=== PATIENT | female | born 1960 | race Two or more races ===

== ENCOUNTER → 2016-10-16 | Outpatient (CLI) | payer BC ==
[~2016-10-16] MED LIST: BACL10TA PO; NAP500T PO; NOR5T PO; OMEP20CA5 PO
== END | disposition home or self-care (01) ==
LOC: LAB 10:33
DX: Z79.899 Other long term (current) drug therapy (principal); D64.9 Anemia, unspecified; M45.0 Ankylosing spondylitis of multiple sites in spine; I10 Essential (primary) hypertension; M32.10 Systemic lupus erythematosus, organ or system involvement unspecified; M25.50 Pain in unspecified joint
CPT/HCPCS: 36415; 84443; 86141

== ENCOUNTER → 2016-11-13 | Outpatient (CLI) | payer BC ==
[2016-11-13 09:20] LABS: Basophils # (auto) 0.1 uL; Basophils % (auto) 0.4 % (0.0-2.0); Eosinophils # (auto) 0.4 uL; Eosinophils % (auto) 2.5 % (0.0-7.0); Hematocrit 42.1 % (36.0-46.0); Hemoglobin 14.2 g/dL (12.2-16.2); Lymphocytes # (auto) 3.3 uL; Lymphocytes % (auto) 22.4 % (10.0-50.0); Mean Corpuscular Hemoglobin 31.3 pg (28.0-32.0); Mean Corpuscular Hgb Conc. 33.9 g/dL (32.0-36.0); Mean Corpuscular Volume 92.4 fL (80.0-100.0); Mean Platelet Volume 8.7 fL (7.4-10.4); Monocytes # (auto) 0.9 uL; Monocytes % (auto) 6.3 % (0.0-12.0); Neutrophils # (auto) 10.1 uL; Neutrophils % (auto) 68.4 % (37.0-80.0); Platelet Count (auto) 272 10^3/uL (140-450); Red Cell Distribution Width 12.8 % (11.6-16.0); White Blood Cell 14.7 10^3/uL (4.4-10.8)
[2016-11-13 09:30] LABS: Urine Bilirubin Negative (Negative); Urine Blood Negative /uL (Negative); Urine Color Yellow (Yellow); Urine Glucose Normal (Normal); Urine Ketone Negative (Negative); Urine Nitrite Negative (Negative); Urine RBC 1 /hpf (0 - 4); Urine Squamous Epithelial Cell MOD /hpf (<5); Urine Urobilinogen Normal (Negative); Urine pH 5.5 (5.0-8.0)
[2016-11-13 09:44] LABS: Albumin 3.9 g/dL (3.4-5.0); BUN/Creatinine Ratio 36.7; Bilirubin, Total 0.5 mg/dL (0.2-1.0); Calcium 9.4 mg/dL (8.5-10.1); Potassium 3.7 mmol/L (3.5-5.1); Total Protein 7.6 g/dL (6.4-8.2)
== END | disposition home or self-care (01) ==
LOC: LAB 08:47
DX: E78.2 Mixed hyperlipidemia (principal); M25.559 Pain in unspecified hip
CPT/HCPCS: 36415; 80053; 80061; 81001; 82306; 85025; 85652

== ENCOUNTER 2017-02-05 06:25 | Day surgery (SDC) | payer BC ==
[2017-02-03 13:08] LABS: Urine Bilirubin Negative (Negative); Urine Blood Negative /uL (Negative); Urine Color Yellow (Yellow); Urine Glucose Normal (Normal); Urine Ketone Negative (Negative); Urine Nitrite Negative (Negative); Urine RBC <1 /hpf (0 - 4); Urine Squamous Epithelial Cell FEW /hpf (<5); Urine Urobilinogen Normal (Negative); Urine pH 5.5 (5.0-8.0)
[2017-02-03 13:13] LABS: Basophils # (auto) 0.1 uL; Basophils % (auto) 0.8 % (0.0-2.0); Eosinophils # (auto) 0.3 uL; Eosinophils % (auto) 2.6 % (0.0-7.0); Hemoglobin 13.9 g/dL (12.2-16.2); Lymphocytes # (auto) 2.4 uL; Lymphocytes % (auto) 23.7 % (10.0-50.0); Mean Corpuscular Hemoglobin 31.8 pg (28.0-32.0); Mean Corpuscular Hgb Conc. 33.8 g/dL (32.0-36.0); Mean Corpuscular Volume 93.9 fL (80.0-100.0); Mean Platelet Volume 10.4 fL (7.4-10.4); Monocytes # (auto) 0.8 uL; Monocytes % (auto) 8.3 % (0.0-12.0); Neutrophils # (auto) 6.5 uL; Neutrophils % (auto) 64.6 % (37.0-80.0); Platelet Count (auto) 267 10^3/uL (140-450); Red Cell Distribution Width 13.5 % (11.6-16.0); White Blood Cell 10.1 10^3/uL (4.4-10.8)
[2017-02-03 13:28] LABS: Albumin 3.8 g/dL (3.4-5.0); BUN/Creatinine Ratio 28.3; Calcium 9.5 mg/dL (8.5-10.1); Potassium 3.3 mmol/L (3.5-5.1)
[2017-02-03 13:30] LABS: Bilirubin, Total 0.5 mg/dL (0.2-1.0); Total Protein 7.4 g/dL (6.4-8.2)
[2017-02-03 13:36] LABS: INR 0.93 (0.9-1.15); Prothrombin Time 10.1 sec (9.37-12.3)
[~2017-02-05] VITALS: Ht 154.9 cm; Wt 57.6 kg
[~2017-02-05 06:25] MED LIST changes: -BACL10TA PO; +ERGO2000 PO; +HYDR-4663 PO; -NOR5T PO; -OMEP20CA5 PO; +OMEP20CA74 PO
[2017-02-05] MEDS ORDERED: LEVOFLOXACIN 500MG 100 ML IV ONE (07:21)
[2017-02-05] MEDS ORDERED: NEOSTIGMINE 1 MG/ML INJ (10mg/10ML VIAL) IV ONE (08:40)
[2017-02-05] MEDS ORDERED: GLYCOPYRROLATE 0.2 MG/ML 1ML VIAL IV ONE (08:40)
[2017-02-05] MEDS ORDERED: MIDAZOLAM HCL 1MG/1ML-2 ML VIAL ONE (08:42)
[2017-02-05] MEDS ORDERED: fentaNYL CITRATE 100 MCG/2 ML VL ONE (08:42)
[2017-02-05] MEDS ORDERED: PROPOFOL 10 MG/ML 20 ML IV ONE (08:43)
[2017-02-05] MEDS ORDERED: ROCURONIUM 10MG/ML 10ML VIAL IV ONE ×2 (08:44→09:08)
[2017-02-05] MEDS: HYDROmorphone HCL 2 MG/ML VL IV PRN ×3 (09:43→10:03)
[2017-02-05] MEDS ORDERED: ONDANSETRON HCL 4 MG/2 ML VIAL IV ONE (09:45)
[2017-02-05] MEDS ORDERED: ePHEDrine SULFATE 50 MG/ML AMP IV PRN (09:45)
[2017-02-05] MEDS ORDERED: hydrALAZINE HCL 20 MG/ML VL IV PRN (09:45)
[2017-02-05] MEDS ORDERED: KETOROLAC TROMETH 30 MG/ML 1ML VIAL ONE (09:52)
[2017-02-05 11:25] VITALS: BP 131/88
== END 2017-02-05 11:35 | disposition home or self-care (01) ==
LOC: SUR 06:25
PROVIDERS: ATTEND Surgery
DX: K80.10 Calculus of gallbladder with chronic cholecystitis without obstruction (principal); B19.10 Unspecified viral hepatitis B without hepatic coma
CPT/HCPCS: 36415; 47562; 80053; 81001; 85025; 85610; 85730; 88304; C1769; J1170; J1885; J1956; J2250; J2405; J2704; J3010; J7030

== ENCOUNTER → 2018-01-29 | Outpatient (CLI) | payer BC ==
[~2018-01-29] MED LIST changes: -HYDR-4663 PO; +HYDR-4683 PO
[2018-01-29 08:56] LABS: Basophils # (auto) 0.1 uL; Basophils % (auto) 0.9 % (0.0-2.0); Eosinophils # (auto) 0.1 uL; Eosinophils % (auto) 1.5 % (0.0-7.0); Hemoglobin 13.3 g/dL (12.2-16.2); Lymphocytes # (auto) 1.6 uL; Lymphocytes % (auto) 16.9 % (10.0-50.0); Mean Corpuscular Hemoglobin 31.9 pg (28.0-32.0); Mean Corpuscular Hgb Conc. 34.2 g/dL (32.0-36.0); Mean Corpuscular Volume 93.2 fL (80.0-100.0); Monocytes # (auto) 0.9 uL; Monocytes % (auto) 9.4 % (0.0-12.0); Neutrophils # (auto) 6.7 uL; Neutrophils % (auto) 71.3 % (37.0-80.0); Platelet Count (auto) 231 10^3/uL (140-450); Red Blood Cells 4.19 10^6/uL (4.0-5.20); Red Cell Distribution Width 13.4 % (11.8-14.3); White Blood Cell 9.4 10^3/uL (4.4-10.8)
[2018-01-29 08:59] LABS: Urine Bacteria FEW /hpf (None Seen); Urine Blood Negative /uL (Negative); Urine Mucus FEW (None Seen); Urine WBC 3 /hpf (0 - 5)
[2018-01-29 09:17] LABS: BUN/Creatinine Ratio 36.4; Calcium 9.2 mg/dL (8.5-10.1)
[2018-01-29 09:50] LABS: Free T3 2.59 pg/mL (2.3-4.2); Free T4 (Free Thyroxine) 1.33 ng/dL (0.89-1.76)
== END | disposition home or self-care (01) ==
LOC: LAB 08:19
PROVIDERS: ATTEND Family Medicine
DX: I10 Essential (primary) hypertension (principal); E78.5 Hyperlipidemia, unspecified; Z79.899 Other long term (current) drug therapy
CPT/HCPCS: 36415; 80048; 80061; 81001; 84439; 84443; 84481; 85025

== ENCOUNTER → 2018-04-29 | Outpatient (CLI) | payer BC ==
[~2018-04-29] MED LIST changes: +BUPIVACAINE 0.5% P/F INJ 10 ML VIAL ONE; +IOHEXOL 300 MG/ML 100ML BOTTLE IJ ONE; +LIDOCAINE 2% (LOCAL ANESTH.) PF 5ml SDV ONE; +methylPREDNISolone ACETATE 80 MG/ML VL ONE; +methylPREDNISolone SOD SUCC 40 MG/ML VL ONE
== END | disposition home or self-care (01) ==
LOC: XY 08:39
PROVIDERS: ATTEND Orthopaedic Surgery Adult Reconstructive Orthopaedic Surgery
DX: M25.552 Pain in left hip (principal); Z88.0 Allergy status to penicillin; Z80.8 Family history of malignant neoplasm of other organs or systems; Z83.3 Family history of diabetes mellitus; Z82.49 Family history of ischemic heart disease and other diseases of the circulatory system
CPT/HCPCS: 20610; 77002; J1040; J3490; Q9967; J2001

== ENCOUNTER → 2018-06-24 | Outpatient (CLI) | payer BC ==
[~2018-06-24] VITALS: Ht 154.9 cm; Wt 74.8 kg
[~2018-06-24] MED LIST changes: +BUPIVACAINE 0.25% INJ 50ML VIAL ONE; -BUPIVACAINE 0.5% P/F INJ 10 ML VIAL ONE; +methylPREDNISolone ACETATE 80 MG/ML VL IM STA; -methylPREDNISolone ACETATE 80 MG/ML VL ONE; -methylPREDNISolone SOD SUCC 40 MG/ML VL ONE
== END | disposition home or self-care (01) ==
LOC: XY 12:41
PROVIDERS: ATTEND Orthopaedic Surgery Adult Reconstructive Orthopaedic Surgery
DX: M25.552 Pain in left hip (principal); Z88.0 Allergy status to penicillin; Z83.3 Family history of diabetes mellitus; Z80.9 Family history of malignant neoplasm, unspecified; Z82.49 Family history of ischemic heart disease and other diseases of the circulatory system
CPT/HCPCS: 20610; 77002; J1040; J2001; J3490; Q9967

== ENCOUNTER → 2018-07-27 | Outpatient (CLI) | payer BC ==
[~2018-07-27] MED LIST changes: -BUPIVACAINE 0.25% INJ 50ML VIAL ONE; -IOHEXOL 300 MG/ML 100ML BOTTLE IJ ONE; -LIDOCAINE 2% (LOCAL ANESTH.) PF 5ml SDV ONE; -methylPREDNISolone ACETATE 80 MG/ML VL IM STA
[2018-07-27 10:07] LABS: Basophils # (auto) 0 uL; Basophils % (auto) 0.2 % (0.0-2.0); Eosinophils # (auto) 0.1 uL; Eosinophils % (auto) 0.5 % (0.0-7.0); Hematocrit 40.9 % (36.0-46.0); Hemoglobin 14.1 g/dL (12.2-16.2); Lymphocytes # (auto) 1.9 uL; Lymphocytes % (auto) 15.4 % (10.0-50.0); Mean Corpuscular Hemoglobin 31.9 pg (28.0-32.0); Mean Corpuscular Hgb Conc. 34.4 g/dL (32.0-36.0); Mean Corpuscular Volume 92.7 fL (80.0-100.0); Monocytes # (auto) 0.7 uL; Monocytes % (auto) 5.8 % (0.0-12.0); Neutrophils # (auto) 9.6 uL; Neutrophils % (auto) 78.1 % (37.0-80.0); Platelet Count (auto) 293 10^3/uL (140-450); Red Blood Cells 4.42 10^6/uL (4.0-5.20); Red Cell Distribution Width 13.4 % (11.8-14.3); White Blood Cell 12.3 10^3/uL (4.4-10.8)
[2018-07-27 10:22] LABS: Urine Bacteria NONE SEEN /hpf (None Seen); Urine Blood Negative /uL (Negative); Urine Specific Gravity 1.013 (1.001-1.035); Urine WBC <1 /hpf (0 - 5)
[2018-07-27 10:41] LABS: Potassium 4.4 mmol/L (3.5-5.1)
[2018-07-27 10:54] LABS: Albumin 3.9 g/dL (3.4-5.0); BUN/Creatinine Ratio 33.9; Bilirubin, Total 0.7 mg/dL (0.2-1.0); Calcium 9.5 mg/dL (8.5-10.1); Total Protein 7.8 g/dL (6.4-8.2)
== END | disposition home or self-care (01) ==
LOC: LAB 08:24
PROVIDERS: ATTEND Nurse Practitioner
DX: E78.5 Hyperlipidemia, unspecified (principal)
CPT/HCPCS: 36415; 80053; 80061; 81001; 83036; 84443; 85025

== ENCOUNTER → 2018-07-31 | Outpatient (CLI) | payer BC | END | disposition home or self-care (01) | LOC: LAB 08:21 | PROVIDERS: ATTEND Nurse Practitioner | DX: E78.5 Hyperlipidemia, unspecified (principal) | CPT/HCPCS: 82270 ==

== ENCOUNTER → 2018-08-13 | Outpatient (CLI) | payer BC ==
[2018-08-13 11:16] LABS: Urine Blood Negative /uL (Negative); Urine Specific Gravity 1.011 (1.001-1.035)
[2018-08-13 11:23] LABS: Basophils # (auto) 0.1 uL; Basophils % (auto) 0.7 % (0.0-2.0); Eosinophils # (auto) 0.2 uL; Eosinophils % (auto) 2.5 % (0.0-7.0); Hematocrit 41.2 % (36.0-46.0); Hemoglobin 13.9 g/dL (12.2-16.2); Lymphocytes # (auto) 2.3 uL; Lymphocytes % (auto) 22.6 % (10.0-50.0); Mean Corpuscular Hemoglobin 31.4 pg (28.0-32.0); Mean Corpuscular Hgb Conc. 33.8 g/dL (32.0-36.0); Mean Corpuscular Volume 92.9 fL (80.0-100.0); Monocytes # (auto) 0.8 uL; Monocytes % (auto) 7.8 % (0.0-12.0); Neutrophils # (auto) 6.7 uL; Neutrophils % (auto) 66.4 % (37.0-80.0); Platelet Count (auto) 216 10^3/uL (140-450); Red Blood Cells 4.43 10^6/uL (4.0-5.20); Red Cell Distribution Width 13.3 % (11.8-14.3); White Blood Cell 10.1 10^3/uL (4.4-10.8)
[2018-08-13 13:43] LABS: Potassium 3.9 mmol/L (3.5-5.1)
[2018-08-13 13:47] LABS: Creatinine, Urine 67 mg/dL (30.0-125.0); Protein, Urine 5.6 mg/dL (0.0-11.9)
[2018-08-13 13:48] LABS: BUN/Creatinine Ratio 31.7; Bilirubin, Total 0.5 mg/dL (0.2-1.0); CRP High Sensitivity 0.19 mg/dL (< 0.3); Calcium 9.2 mg/dL (8.5-10.1); Total Protein 7.4 g/dL (6.4-8.2)
[2018-08-15 16:06] LABS: Aldolase 5.9 U/L (3.3-10.3)
== END | disposition home or self-care (01) ==
LOC: LAB 09:57
PROVIDERS: ATTEND Internal Medicine
DX: D64.9 Anemia, unspecified (principal); M06.9 Rheumatoid arthritis, unspecified; M33.20 Polymyositis, organ involvement unspecified; E03.9 Hypothyroidism, unspecified; E78.5 Hyperlipidemia, unspecified; M32.9 Systemic lupus erythematosus, unspecified; M32.10 Systemic lupus erythematosus, organ or system involvement unspecified; Z79.899 Other long term (current) drug therapy
CPT/HCPCS: 36415; 80053; 81003; 82306; 82550; 82570; 84156; 84443; 85025; 85652; 86141; 86160

== ENCOUNTER → 2018-10-01 | Outpatient (CLI) | payer BC | END | disposition home or self-care (01) | LOC: LAB 13:31 | PROVIDERS: ATTEND Nurse Practitioner | DX: E78.5 Hyperlipidemia, unspecified (principal); E03.9 Hypothyroidism, unspecified | CPT/HCPCS: 36415; 84403; 84478; 84481 ==

== ENCOUNTER → 2018-12-09 | Outpatient (CLI) | payer BC ==
[2018-12-09 10:33] LABS: Urine WBC None Seen /hpf (0 - 5)
[2018-12-09 10:56] LABS: Basophils # (auto) 0.1 uL; Eosinophils # (auto) 0.3 uL; Hematocrit 42.4 % (36.0-46.0); Hemoglobin 14.6 g/dL (12.2-16.2); Lymphocytes # (auto) 2.7 uL; Lymphocytes % (auto) 31.6 % (10.0-50.0); Mean Corpuscular Hemoglobin 30.9 pg (28.0-32.0); Mean Corpuscular Hgb Conc. 34.4 g/dL (32.0-36.0); Mean Corpuscular Volume 89.7 fL (80.0-100.0); Monocytes # (auto) 0.6 uL; Monocytes % (auto) 7.4 % (0.0-12.0); Neutrophils # (auto) 4.8 uL; Nucleated Red Blood Cells % 0.1 %; Platelet Count (auto) 225 10^3/uL (140-450); Red Blood Cells 4.72 10^6/uL (4.0-5.20); Red Cell Distribution Width 12.4 % (11.8-14.3); White Blood Cell 8.5 10^3/uL (4.4-10.8)
[2018-12-09 11:00] LABS: INR 0.99 (0.9-1.15); Prothrombin Time 10.6 sec (9.27-12.13)
[2018-12-09 11:04] LABS: Albumin 4.8 g/dL (3.4-5.0); Potassium 3.8 mmol/L (3.5-5.1)
[2018-12-09 11:12] LABS: BUN/Creatinine Ratio 37.5; Bilirubin, Total 0.5 mg/dL (0.2-1.0); Free T4 (Free Thyroxine) 0.99 ng/dL (0.89-1.76); T3 Total 0.91 ng/mL (0.60-1.81); Total Protein 8.1 g/dL (6.4-8.2)
[2018-12-09 11:13] LABS: Free T3 2.23 pg/mL (2.3-4.2)
[2018-12-09 11:14] LABS: Folate (Folic Acid) 16.21 ng/mL (5.38-24)
[2018-12-09 12:00] LABS: Urine Bacteria FEW /hpf (None Seen); Urine Blood Negative /uL (Negative)
== END | disposition home or self-care (01) ==
LOC: LAB 10:09
PROVIDERS: ATTEND Nurse Practitioner
DX: M79.7 Fibromyalgia (principal); E78.5 Hyperlipidemia, unspecified
CPT/HCPCS: 36415; 80053; 80061; 81001; 82306; 82607; 82746; 83036; 84439; 84443; 84480; 84481; 85025; 85610; 85730

== ENCOUNTER 2019-03-15 06:21 | Inpatient (IN) | payer BC ==
[2019-03-11 11:30] LABS: Basophils # (auto) 0.1 uL; Basophils % (auto) 0.6 % (0.0-2.0); Eosinophils # (auto) 0.2 uL; Eosinophils % (auto) 1.5 % (0.0-7.0); Hematocrit 35.1 % (36.0-46.0); Hemoglobin 12.5 g/dL (12.2-16.2); Lymphocytes # (auto) 1.4 uL; Lymphocytes % (auto) 12.9 % (10.0-50.0); Mean Corpuscular Hemoglobin 32.5 pg (28.0-32.0); Mean Corpuscular Hgb Conc. 35.6 g/dL (32.0-36.0); Mean Corpuscular Volume 91.3 fL (80.0-100.0); Monocytes # (auto) 0.9 uL; Monocytes % (auto) 8.6 % (0.0-12.0); Neutrophils % (auto) 76.4 % (37.0-80.0); Platelet Count (auto) 235 10^3/uL (140-450); Red Blood Cells 3.84 10^6/uL (4.0-5.20); Red Cell Distribution Width 13.9 % (11.8-14.3); White Blood Cell 10.5 10^3/uL (4.4-10.8)
[2019-03-11 11:33] LABS: Urine Blood Negative /uL (Negative); Urine Specific Gravity 1.011 (1.001-1.035)
[2019-03-11 11:42] LABS: INR 0.96 (0.9-1.15); Partial Thromboplastin Time 25.2 sec (23.64-32.05)
[2019-03-11 13:39] LABS: Calcium 9.8 mg/dL (8.5-10.1); Potassium 3.2 mmol/L (3.5-5.1)
[2019-03-11 13:45] LABS: Albumin 4.1 g/dL (3.4-5.0); BUN/Creatinine Ratio 20.8; Bilirubin, Total 0.8 mg/dL (0.2-1.0); Total Protein 7.6 g/dL (6.4-8.2)
[~2019-03-15] VITALS: Ht 157.5 cm; Wt 74.4 kg
[2019-03-15] VITALS (13 sets, daily range): BP systolic 93–114; BP diastolic 50–76
[~2019-03-15 06:21] MED LIST changes: +ATOR10TA52 PO; +CHLO25TA22 PO; -HYDR-4683 PO
[2019-03-15] MEDS ORDERED: ceFAZolin 1GM/50ML 100 ML IV ONE (07:04)
[2019-03-15] MEDS ORDERED: BUPIVACAINE W/ EPINEPH 0.25% INJ 50ML MDV ONE (08:00)
[2019-03-15] MEDS ORDERED: VANCOMYCIN HCL 1000 MG VL ONE (08:02)
[2019-03-15] MEDS ORDERED: TRANEXAMIC ACID 10 ML ONE ×2 (08:03)
[2019-03-15] MEDS ORDERED: MORPHINE SULF(PF) 0.5MG/ML 10ML VIAL ONE ×2 (08:05→08:25)
[2019-03-15] MEDS ORDERED: KETOROLAC TROMETH 60MG/2ML VIAL ONE (08:08)
[2019-03-15] MEDS ORDERED: TETRACAINE 1% INJ 2 ML VIAL IJ ONE (08:16)
[2019-03-15] MEDS ORDERED: MIDAZOLAM HCL 1MG/1ML-2 ML VIAL ONE ×2 (08:25→08:39)
[2019-03-15] MEDS ORDERED: fentaNYL CITRATE 100 MCG/2 ML VL ONE (08:25)
[2019-03-15] MEDS ORDERED: PROPOFOL 10 MG/ML 20 ML IV ONE (08:39)
[2019-03-15] MEDS ORDERED: DexAMETHasone SOD PHOS 10MG/1ML VIAL INJ ONE (08:39)
[2019-03-15] MEDS ORDERED: ePHEDrine SULFATE 50 MG/ML AMP IV PRN (09:00)
[2019-03-15] MEDS ORDERED: NALOXONE HCL 0.4 MG/ML VIAL IV PRN (09:00)
[2019-03-15] MEDS ORDERED: HYDROmorphone HCL 2 MG/ML VL IV PRN ×2 (09:00→11:30)
[2019-03-15] MEDS ORDERED: NALBUPHINE HCL 10 MG/1ml INJECTION SUBCUT ONE (09:00)
[2019-03-15] MEDS ORDERED: diphenhdrAMINE HCL 50 MG/1 ML VL IV PRN (09:00)
[2019-03-15] MEDS ORDERED: DexAMETHasone SOD PHOS 10MG/1ML VIAL INJ IV PRN (09:00)
[2019-03-15] MEDS ORDERED: PHENYLEPHRINE HCL 10 MG/ML VL ONE (09:09)
[2019-03-15] MEDS ORDERED: NITROGLYCERIN 0.4 MG SL TAB SL PRN (11:30)
[2019-03-15] MEDS ORDERED: ERGOCALCIFEROL 50000 UNIT PO SCH (11:30)
[2019-03-15] MEDS ORDERED: ONDANSETRON HCL 4 MG/2 ML VIAL IV PRN (11:30)
[2019-03-15] MEDS ORDERED: ACETAMINOPHEN 325 MG TAB PO PRN (11:30)
[2019-03-15] MEDS ORDERED: MORPHINE SULF INJ 2 MG/ML SYRINGE 1ML IV PRN (11:30)
[2019-03-15] MEDS ORDERED: BISACODYL 5 MG EC TAB PO PRN (11:30)
[2019-03-15] MEDS ORDERED: PANTOPRAZOLE 40 MG TAB PO ONE (11:45)
[2019-03-15] MEDS ORDERED: ENOXAPARIN SOD 40 MG/0.4 ML SYRINGE SC ONE (12:00)
[2019-03-15] MEDS ORDERED: DOCUSATE SOD 100 MG CAP PO ONE (12:00)
--- NOTE | 2019-03-15 12:48 | NUR ---
Med-Surg admit from [facility] ALEXA HARRIS admitted to Med-Surg unit after SBAR received. Patient is s/p left hip repair by Dr. Cristi Fernandez. Patient is alert and oriented, vital signs checked-stable. No complaints of pain. Noted good pulses on both feet. Dressing on left hip is clean, dry and intact. Knee immobilizer on patient. Patient oriented to ERNESTO Shay RN, unit, room, bed, and unit policies regarding patient care and visiting hours. Patient will be hooked on continuous pulse ox-will order from RT. Oxygen saturation now is at 100% on 2 L oxygen via nasal cannula. Patient encouraged to call if they need something. All questions and concerns addressed, patient verbalized understanding.
[2019-03-15] MEDS: ceFAZolin 1GM/50ML 50 ML IV SCH ×3 (13:50→23:30)
[2019-03-15] MEDS: LACTATED RINGER'S 1,000 ML IV SCH ×2 (13:51→21:41)
[2019-03-15] MEDS: SODIUM CHLOR 0.9% PF (SALINE LOCK) 10ML VIAL/SYR IV SCH ×2 (13:51→21:40)
[2019-03-15] MEDS: ONDANSETRON HCL 4 MG/2 ML VIAL IV PRN ×2 (13:53→18:24)
--- NOTE | 2019-03-15 14:00 | NUR ---
Called debt collection specialist, order SCD machine, she stated she will bring it in for patient. Incentive spirometer given to patient and instructed patient on the use of the equipment, also provided education on the benefits of using the equipment. Patient verbalized understanding.
--- NOTE | 2019-03-15 15:15 | NUR ---
Page Dr. Hamilton to inform MD of hospitalist consult as ordered by Dr. Fernandez. Await call back from .
--- NOTE | 2019-03-15 16:20 | NUR ---
Spoke with brick tosser again with regards to SCD machine.
--- NOTE | 2019-03-15 19:00 | NUR ---
OPENING NOTE Received report from day shift RN. Patient is A&O X's 4 with no s/s of distress noted. Patient reports no pain at this time. Educated patient on POC and to use call light when in need of assistance. Patient verbalized understanding. At this time, LR is infusing at 100ml/hr, O2 is being administered at 2L/min via N.C, IS is at bedside. Continuous pulse ox. Foam knee immobilizer is in place. Applied SCD's bilaterally. Dressings to left hip is C/D/I.Saleh is free of kinks and draining below level of bladder. Pulses to bilateral lower extremities are strong and patient reports no change is sensation. Will continue to monitor for changes and round hourly/PRN. VS will be taken Q1Hr
[2019-03-15] MEDS: ATORVASTATIN 20 MG TAB PO SCH (21:40)
[2019-03-15] MEDS: DOCUSATE SOD 100 MG CAP PO SCH (21:40)
--- NOTE | 2019-03-15 22:16 | NUR ---
Respiratory note: CONTINUOUS PULSOX CHECK ON PT. SPO2 100% ON 1L NC, HT 69, RR 14, BREATH SOUNDS CLEAR/DIMINISHED. NO SIGNS OF ANY RESPIRATORY DISTRESS NOTED. WILL CONTINUE TO MONITOR PT.
[2019-03-16] VITALS (12 sets, daily range): BP systolic 92–108; BP diastolic 42–54
[2019-03-16 06:30] LABS: Hematocrit 24.7 % (36.0-46.0); Hemoglobin 8.7 g/dL (12.2-16.2)
[2019-03-16 06:53] LABS: BUN/Creatinine Ratio 26.2; Bilirubin, Total 0.5 mg/dL (0.2-1.0); Calcium 8.4 mg/dL (8.5-10.1); Total Protein 5.6 g/dL (6.4-8.2)
[2019-03-16] MEDS: SODIUM CHLOR 0.9% PF (SALINE LOCK) 10ML VIAL/SYR IV SCH ×3 (06:53→21:40)
--- NOTE | 2019-03-16 07:00 | NUR ---
D/C TAO Emptied 1250 ml of clear, yellow urine from tao bag. Addendum: 03/16/19 at 0709 by CAYLA GARNETT RN RN D/C Addendum: 03/16/19 at 0711 by CAYLA GARNETT RN RN D/C TAO Emptied 1250 ml of clear, yellow urine from tao bag. Educated patient on tao catheter removal procedure. Patient verbalized understanding and agreed to the procedure. Removed about 9cc of solution from the tao catheter balloon. Removed using clean technique. Catheter was fully intact. Patient tolerated it well with no c/o pain. Will inform day shift [facility]
[2019-03-16 07:31] LABS: Potassium 2.9 mmol/L (3.5-5.1)
[2019-03-16] MEDS ORDERED: POTASSIUM CHL 20 Meq TABLET PO ONE ×2 (07:45→08:00)
--- NOTE | 2019-03-16 07:50 | NUR ---
TELEPHONE ORDER T/O received from HARSHAD Perdomo, read back and noted.
[2019-03-16] MEDS: ENOXAPARIN SOD 40 MG/0.4 ML SYRINGE SC SCH (09:57)
[2019-03-16] MEDS: PANTOPRAZOLE 40 MG TAB PO SCH (09:58)
[2019-03-16] MEDS: POTASSIUM CHL 20 Meq TABLET PO SCH ×2 (09:58→12:59)
[2019-03-16] MEDS: MULTIPLE VITAMIN TAB PO SCH (09:58)
[2019-03-16] MEDS: OXYCODONE W/ ACETAMINOPHEN 5/325MG TABLET PO PRN ×3 (09:59→21:39)
[2019-03-16] MEDS: DOCUSATE SOD 100 MG CAP PO SCH ×2 (10:00→21:40)
[2019-03-16] MEDS: FERROUS SULFATE 325 MG TAB PO SCH ×2 (10:00→17:43)
--- NOTE | 2019-03-16 12:30 | NUR ---
TURN/POSITION Patient voided large amount of urine in bed white. Partial linen change provided. Skin to sacral area free of redness.
--- NOTE | 2019-03-16 13:58 | NUR ---
HOSPITALIST Dr Alfonso camacho on patient.
[2019-03-16] MEDS: ATORVASTATIN 20 MG TAB PO SCH (21:40)
[2019-03-17] MEDS: ONDANSETRON HCL 4 MG/2 ML VIAL IV PRN ×2 (03:40→12:02)
[2019-03-17] MEDS: OXYCODONE W/ ACETAMINOPHEN 5/325MG TABLET PO PRN ×4 (03:41→21:02)
[2019-03-17 03:57] VITALS: BP 107/55
[2019-03-17] MEDS: SODIUM CHLOR 0.9% PF (SALINE LOCK) 10ML VIAL/SYR IV SCH ×3 (06:26→21:32)
[2019-03-17 07:04] LABS: Basophils # (auto) 0 uL; Eosinophils # (auto) 0.1 uL; Hemoglobin 7.9 g/dL (12.2-16.2); Lymphocytes # (auto) 2.2 uL
[2019-03-17 07:08] LABS: Basophils % (auto) 0.4 % (0.0-2.0); Eosinophils % (auto) 1.1 % (0.0-7.0); Hematocrit 22.3 % (36.0-46.0); Lymphocytes % (auto) 22.4 % (10.0-50.0); Mean Corpuscular Hemoglobin 32.9 pg (28.0-32.0); Mean Corpuscular Hgb Conc. 35.4 g/dL (32.0-36.0); Monocytes % (auto) 9.7 % (0.0-12.0); Neutrophils # (auto) 6.5 uL; Neutrophils % (auto) 66.4 % (37.0-80.0); Platelet Count (auto) 165 10^3/uL (140-450); Red Cell Distribution Width 14.3 % (11.8-14.3); White Blood Cell 9.9 10^3/uL (4.4-10.8)
[2019-03-17 07:21] LABS: BUN/Creatinine Ratio 31.9; Calcium 8.2 mg/dL (8.5-10.1); Potassium 3.3 mmol/L (3.5-5.1)
--- NOTE | 2019-03-17 07:45 | NUR ---
Opening Shift Note Assumed care of patient, awake and alert. No S/S of distress/SOB. Patient refuses to have pain medications at this time until she eats breakfast, tray at bedside. Instructed on POC and to call for assist PRN, will continue to monitor for changes Q1hr and PRN.
[2019-03-17 07:57] VITALS: BP 118/65
--- NOTE | 2019-03-17 09:33 | NUR ---
PHYSICAL THERAPY PT at nursing station asked about PT order. Per Pt "patient is on schedule for today".
[2019-03-17] MEDS: MULTIPLE VITAMIN TAB PO SCH (09:43)
[2019-03-17] MEDS: FERROUS SULFATE 325 MG TAB PO SCH ×2 (09:43→17:01)
[2019-03-17] MEDS: PANTOPRAZOLE 40 MG TAB PO SCH (09:43)
[2019-03-17] MEDS: DOCUSATE SOD 100 MG CAP PO SCH ×2 (09:43→21:32)
[2019-03-17] MEDS: ENOXAPARIN SOD 40 MG/0.4 ML SYRINGE SC SCH (09:44)
[2019-03-17] MEDS ORDERED: POTASSIUM CHL 20 Meq TABLET PO ONE (11:30)
--- NOTE | 2019-03-17 11:45 | NUR ---
PHYSICAL THERAPY Patient ambulated with walker and assistance of PT to restroom. Patient able to sit in bedside chair. Patient became nauseous while sitting in chair. Returned patient to bed with PT's assistance and medicated with Zofran as ordered.
--- NOTE | 2019-03-17 12:15 | NUR ---
Rounds Patient resting comfortably in bed, no complaints of nausea.
[2019-03-17 14:06] VITALS: BP 92/52
--- NOTE | 2019-03-17 15:15 | NUR ---
KNEE IMMOBILIZER Per Sahil with PT, he spoke with Ayo in Ortho department and patient does not need knee immobilizer. Continue to use abductor pillow and prevent leg crossing.
--- NOTE | 2019-03-17 15:45 | NUR ---
per [facility] has accepted pt for HH, start of care 24-48 hrs post d/c Addendum: 03/19/19 at [facility] by VAMSHI GIPSON Per JANEY consult for equipment dylon. Contacted [facility] ( [phone]) ) Faxed medical records. Per Missy equipment was approved by insurance dylon to be deliver at home today 03/19/2019.
[2019-03-17 15:57] VITALS: BP 106/53
--- NOTE | 2019-03-17 16:35 | NUR ---
Per consult home health for physical therapy, nursing 2x a week x 2 weeks. Contacted [facility] Ph: ) Fax: ) faxed medical records. Per Sheryl from [facility] Pt has been accepted with a 3 dollar copy each visit and service to start within 48 hours upon d/c. Pt was informed about the 3 dollar copy. Pt agrees and understand d/c plan. Informed Data [employer] for authorization. Addendum: 03/17/19 at 1708 by VAMSHI GIPSON Amended: Links added.
--- NOTE | 2019-03-17 19:30 | NUR ---
Opening Shift Note Assumed care of patient, awake and alert. No S/S of distress/SOB or pain. Instructed on POC and to call for assist PRN, will continue to monitor for changes Q1hr and PRN.
[2019-03-17] MEDS: ATORVASTATIN 20 MG TAB PO SCH (21:32)
[2019-03-17 22:00] VITALS: BP 113/72
[2019-03-18] MEDS: OXYCODONE W/ ACETAMINOPHEN 5/325MG TABLET PO PRN ×2 (04:20→09:58)
[2019-03-18 04:30] VITALS: BP 123/61
[2019-03-18] MEDS: SODIUM CHLOR 0.9% PF (SALINE LOCK) 10ML VIAL/SYR IV SCH (06:01)
[2019-03-18 06:45] LABS: Basophils # (auto) 0 uL; Basophils % (auto) 0.6 % (0.0-2.0); Eosinophils # (auto) 0.2 uL; Eosinophils % (auto) 2.8 % (0.0-7.0); Hematocrit 24.7 % (36.0-46.0); Hemoglobin 8.8 g/dL (12.2-16.2); Lymphocytes # (auto) 1.5 uL; Lymphocytes % (auto) 19.6 % (10.0-50.0); Mean Corpuscular Hemoglobin 33.6 pg (28.0-32.0); Mean Corpuscular Hgb Conc. 35.6 g/dL (32.0-36.0); Mean Corpuscular Volume 94.3 fL (80.0-100.0); Monocytes # (auto) 0.6 uL; Monocytes % (auto) 7.6 % (0.0-12.0); Neutrophils # (auto) 5.5 uL; Neutrophils % (auto) 69.4 % (37.0-80.0); Nucleated Red Blood Cells % 0.1 %; Platelet Count (auto) 190 10^3/uL (140-450); Red Blood Cells 2.62 10^6/uL (4.0-5.20); Red Cell Distribution Width 13.9 % (11.8-14.3); White Blood Cell 7.9 10^3/uL (4.4-10.8)
[2019-03-18 06:47] LABS: Calcium 8.8 mg/dL (8.5-10.1)
[2019-03-18 07:57] VITALS: BP 99/52
[2019-03-18] MEDS: FERROUS SULFATE 325 MG TAB PO SCH (08:00)
--- NOTE | 2019-03-18 09:55 | NUR ---
PHYSICAL THERAPY Patient ambulated hallway with use of FWW and PT standby. Patient sat in bedside chair for 10 mins. Complete linen change provided and patient returned to bed with assistance of PT. Call light in reach.
[2019-03-18] MEDS: PANTOPRAZOLE 40 MG TAB PO SCH (09:57)
[2019-03-18] MEDS: MULTIPLE VITAMIN TAB PO SCH (09:57)
[2019-03-18] MEDS: ENOXAPARIN SOD 40 MG/0.4 ML SYRINGE SC SCH (09:57)
[2019-03-18] MEDS: DOCUSATE SOD 100 MG CAP PO SCH (09:57)
[2019-03-18 10:00] LABS: Potassium 3.8 mmol/L (3.5-5.1)
[2019-03-18 10:01] LABS: BUN/Creatinine Ratio 26.4
[2019-03-18] MEDS: ONDANSETRON HCL 4 MG/2 ML VIAL IV PRN (10:02)
--- NOTE | 2019-03-18 12:15 | NUR ---
Discharge education Printed, verbal and demonstration given to patient and at bedside for Lovenox injections. Supplies given to patient. Patient and patients Edward verbalized understanding.
--- NOTE | 2019-03-18 12:31 | NUR ---
O/c note: unable to get bsc for pt today due to [facility] being closed for the day. Can work on getting bsc tomorrow for pt. Primary RN informed and will inform MD and pt.
--- NOTE | 2019-03-18 12:50 | NUR ---
DME: BSC Received phone call from BALBIR Berg. Per Morena patient will not have BSC delivered today r/t insurance being closed for holiday. Patient and at bedside made aware. Patient feels safe discharging home without BSC and does not want to hold discharge for DME. Will verify with Dr Fernandez prior to discharging home.
--- NOTE | 2019-03-18 13:00 | NUR ---
Dr Skelton roundroberto on patient. Patient educated on discharge f/u needs and use I.S.. I.S. sent home with patient.
--- NOTE | 2019-03-18 14:18 | NUR ---
Discharge instructions given as ordered. Encourage to follow up with PMD as instructed. All questions and concerns addressed. Patient verbalized understanding. Medication reconciliation form completed and copy given to patient. IV removed with catheter intact, pressure dressing applied. Patient taken to vehicle with assistance of physical therapy to provided education to on body mechanics. Patient left via wheelchair with all personal belongings, accompanied by staff and family member. No distress noted at time of departure.
== END 2019-03-18 14:22 | disposition home health service (06) | DRG 470 ==
LOC: SUR 06:21 → EAST 12:49
PROVIDERS: ADMIT Orthopaedic Surgery Adult Reconstructive Orthopaedic Surgery; ATTEND Internal Medicine
PROC: 8E0YXBZ Computer Assisted Procedure of Lower Extremity (ICD-10-PCS; 2019-03-15)
PROC: 0SRB06Z Replacement of Left Hip Joint with Oxidized Zirconium on Polyethylene Synthetic Substitute, Open Approach (ICD-10-PCS; principal; 2019-03-15 08:25)
DX: M16.0 Bilateral primary osteoarthritis of hip (principal); Q65.89 Other specified congenital deformities of hip; E87.6 Hypokalemia; E66.9 Obesity, unspecified; I10 Essential (primary) hypertension; D64.9 Anemia, unspecified; E78.5 Hyperlipidemia, unspecified; Z68.30 Body mass index [BMI] 30.0-30.9, adult; Z82.49 Family history of ischemic heart disease and other diseases of the circulatory system; E11.9 Type 2 diabetes mellitus without complications
CPT/HCPCS: 36415; 72170; 80048; 80053; 81003; 85014; 85018; 85025; 85610; 85730; 94762; 97110; 97116; 97530; G0378; J0690; J1100; J1885; J2250; J2405; J2704

== ENCOUNTER → 2019-05-31 | Outpatient (CLI) | payer BC ==
[~2019-05-31] MED LIST changes: -NAP500T PO
[2019-05-31 09:43] LABS: Basophils # (auto) 0.1 uL; Basophils % (auto) 1.1 % (0.0-2.0); Eosinophils # (auto) 0.3 uL; Hematocrit 38.6 % (36.0-46.0); Hemoglobin 13.2 g/dL (12.2-16.2); Lymphocytes # (auto) 2.2 uL; Lymphocytes % (auto) 29.8 % (10.0-50.0); Mean Corpuscular Hemoglobin 29.9 pg (28.0-32.0); Mean Corpuscular Hgb Conc. 34.3 g/dL (32.0-36.0); Mean Corpuscular Volume 87.3 fL (80.0-100.0); Monocytes # (auto) 0.8 uL; Neutrophils # (auto) 4.1 uL; Neutrophils % (auto) 54.1 % (37.0-80.0); Platelet Count (auto) 228 10^3/uL (140-450); Red Blood Cells 4.42 10^6/uL (4.0-5.20); Red Cell Distribution Width 13.8 % (11.8-14.3); White Blood Cell 7.5 10^3/uL (4.4-10.8)
[2019-05-31 09:52] LABS: Urine Bacteria NONE SEEN /hpf (None Seen); Urine Blood Negative /uL (Negative); Urine Mucus FEW (None Seen); Urine Specific Gravity 1.022 (1.001-1.035); Urine WBC 3 /hpf (0 - 5)
[2019-05-31 10:37] LABS: Albumin 4.2 g/dL (3.4-5.0); BUN/Creatinine Ratio 28.6; Bilirubin, Total 0.5 mg/dL (0.2-1.0); Calcium 9.5 mg/dL (8.5-10.1); Total Protein 7.5 g/dL (6.4-8.2)
[2019-05-31 11:00] LABS: Potassium 2.7 mmol/L (3.5-5.1)
== END | disposition home or self-care (01) ==
LOC: LAB 08:56
PROVIDERS: ATTEND Nurse Practitioner
DX: E78.5 Hyperlipidemia, unspecified (principal)
CPT/HCPCS: 36415; 80053; 80061; 81001; 84443; 85025

== ENCOUNTER → 2019-06-09 | Outpatient (CLI) | payer BC ==
[2019-06-09 12:52] LABS: Albumin 3.8 g/dL (3.4-5.0); Calcium 9.2 mg/dL (8.5-10.1); Potassium 3.9 mmol/L (3.5-5.1)
[2019-06-09 12:54] LABS: Bilirubin, Total 0.4 mg/dL (0.2-1.0); Total Protein 7.4 g/dL (6.4-8.2)
== END | disposition home or self-care (01) ==
LOC: LAB 12:03
PROVIDERS: ATTEND Nurse Practitioner
DX: I10 Essential (primary) hypertension (principal)
CPT/HCPCS: 36415; 80053

== ENCOUNTER → 2020-02-02 | Outpatient (CLI) | payer BC ==
[2020-02-02 08:56] LABS: Basophils # (auto) 0.1 10 ^3/uL (0-0.2); Basophils % (auto) 1.1 % (0.0-2.0); Eosinophils # (auto) 0.2 10 ^3/uL (0-0.8); Eosinophils % (auto) 1.2 % (0.0-7.0); Hematocrit 42.4 % (36.0-46.0); Hemoglobin 14.1 g/dL (12.2-16.2); Lymphocytes # (auto) 3.4 10 ^3/uL (0.4-5.4); Lymphocytes % (auto) 26.2 % (10.0-50.0); Mean Corpuscular Hemoglobin 30.8 pg (28.0-32.0); Mean Corpuscular Hgb Conc. 33.2 g/dL (32.0-36.0); Mean Corpuscular Volume 92.7 fL (80.0-100.0); Monocytes # (auto) 0.9 10 ^3/uL (0-1.3); Monocytes % (auto) 6.7 % (0.0-12.0); Neutrophils # (auto) 8.3 10 ^3/uL (1.6-8.6); Neutrophils % (auto) 64.8 % (37.0-80.0); Nucleated Red Blood Cells % 0.1 %; Platelet Count (auto) 248 10^3/uL (140-450); Red Blood Cells 4.57 10^6/uL (4.0-5.20); Red Cell Distribution Width 13.5 % (11.8-14.3); White Blood Cell 12.9 10^3/uL (4.4-10.8)
[2020-02-02 08:57] LABS: Urine Bacteria NONE SEEN /hpf (None Seen); Urine Blood Negative /uL (Negative); Urine Specific Gravity 1.013 (1.001-1.035); Urine WBC 1 /hpf (0 - 5)
[2020-02-02 09:17] LABS: Potassium 4.1 mmol/L (3.5-5.1)
[2020-02-02 09:25] LABS: Albumin 3.9 g/dL (3.4-5.0); BUN/Creatinine Ratio 37.1; Bilirubin, Total 0.5 mg/dL (0.2-1.0); Calcium 9.3 mg/dL (8.5-10.1); Total Protein 7.5 g/dL (6.4-8.2)
== END | disposition home or self-care (01) ==
LOC: LAB 08:32
PROVIDERS: ATTEND Nurse Practitioner
DX: Z00.00 Encounter for general adult medical examination without abnormal findings (principal); E78.5 Hyperlipidemia, unspecified
CPT/HCPCS: 36415; 80053; 80061; 81001; 84443; 85025